=== PATIENT | male | born 1940 | race Caucasian/White ===

== ENCOUNTER 2018-01-14 07:30 | Outpatient (CLI) | payer MEDICARE, BC ==
--- NOTE | 2018-01-14 12:24 | PET ---
PET CT OF BRAIN: HISTORY: 77-year-old male with Alzheimer's disease with late onset. Memory loss. TECHNIQUE: PET CT of the brain was performed following the intravenous administration of 8.7 mCi [id number] in the left antecubital fossa. Imaging was performed after an uptake interval of 43 minutes. FINDINGS: There is hypometabolism/decreased FDG localization in the temporoparietal lobes compared to the rest of the cerebellar cortex. IMPRESSION: Findings are consistent with Alzheimer's disease. POS: OBED
== END 2018-01-14 07:31 | disposition home or self-care (01) ==
LOC: PET 07:30
PROVIDERS: ATTEND Psychiatry & Neurology Neurology
DX: G30.1 Alzheimer's disease with late onset (principal)
CPT/HCPCS: 78608; A9552